=== PATIENT | male | born 1990 | race Caucasian/White ===

== ENCOUNTER 2020-10-25 13:35 | Emergency (ER) | payer BC ==
[~2020-10-25] VITALS: Ht 175.3 cm; Wt 81.6 kg
--- NOTE | 2020-10-25 14:27 | NUR ---
Patient does not wish to proceed with medical care recommended by Dr. Hanley. Patient given information related to possible complications, up to and including , which could occur as a result of leaving the hospital at this time. Patient verbalizes understanding of risks involved due to leaving against medical advice. Patient has signed AMA form.
--- NOTE | 2020-10-28 08:44 | NUR ---
patient informed by me that he is positive for COVID. Stressed self quarantine and precautions.
== END 2020-10-25 14:29 | disposition left against medical advice (07) ==
LOC: ER 13:35
DX: U07.1 COVID-19 (principal)
CPT/HCPCS: 99283; U0003; A4663